=== PATIENT | female | born 1980 | race Caucasian/White ===

== ENCOUNTER 2019-01-14 14:07 | Emergency (ER) | payer OTHER ==
[~2019-01-14] VITALS: Ht 162.6 cm; Wt 72.8 kg
[2019-01-14 14:16] VITALS: BP 134/83
--- NOTE | 2019-01-14 14:21 | NUR ---
PT AMBULATED TO LOBBY AT THIS TIME W/ VSS.
--- NOTE | 2019-01-14 15:21 | NUR ---
PT AMBULATED TO BED 12
--- NOTE | 2019-01-14 15:30 | NUR ---
PT IS A 38 Y/O FEMALE WHO PRESENTS TO THE ED C/O SORE THROAT X3 DAYS WITH FEVER. PT STATES THAT SYMPTOMS HAVE BEEN GOING ON X1 DAY. PT HAD FEVER AND TOOK MOTRIN TODAY AT 0700. PT REPORTS 8/10 ACHING SORE THROAT PAIN THAT DOES NOT RADIATE AND BODY ACHES. PT DENIES CP, SOB, N/V/D. PT AWAKE AND ALERT, RR EVEN/UNLABORED. PT REPOSITIONED FOR COMFORT, BED IN LOWEST POSITION. ER MD DR. DAMON NOTIFIED. WILL CONTINUE TO MONITOR. MEDHX:DENIES RX:IBUPROFEN
[2019-01-14] MEDS ORDERED: KETOROLAC 15 MG/ML VIAL IM ONE (15:50)
[2019-01-14] MEDS ORDERED: DEXAMETHASONE 10 MG/ML VIAL IM ONE (15:50)
--- NOTE | 2019-01-14 16:30 | NUR ---
PATIENT RESTING AT THIS TIME. NO SIGNS OF DISTRESS.
[2019-01-14] MEDS ORDERED: PENICILLIN G BENZATHINE L-A 1.2 MU/2 ML SYR IM ONE (16:35)
[2019-01-14 17:00] VITALS: BP 137/81
--- NOTE | 2019-01-14 17:00 | NUR ---
Patient discharged with v/s stable. Written and verbal after care instructions given and explained. Patient verbalized understanding. Ambulatory with steady gait. All questions addressed prior to discharge. Advised to follow up with PMD.
== END 2019-01-14 17:00 | disposition home or self-care (01) ==
LOC: MED 14:07
DX: J02.8 Acute pharyngitis due to other specified organisms (principal)
CPT/HCPCS: 81002; 81025; 87081; 96372; 99283; J0561; J1100; J1885

== ENCOUNTER 2019-11-25 11:19 | Emergency (ER) | payer SELFPAY ==
[~2019-11-25] VITALS: Ht 162.6 cm; Wt 74.8 kg
--- NOTE | 2019-11-25 11:24 | NUR ---
Patient ambulated to bed 7. RN evaluating patient at bedside.
[2019-11-25 11:27] VITALS: BP 122/83
--- NOTE | 2019-11-25 11:27 | NUR ---
39 Y/O F C/C FATIGUE X 1 WEEK. PT FURTHER COMPLAINTS OF HEADACHE/NAUSEA X 1 DAY. PT DENIES BURNING ON URINATION WITH NORMAL BM. NO ABDOMINAL PAIN/DISCOMFORT. ABLE TO TOLERATE ORAL INTAKE. HAS TAKEN TYLENOL FOR H/A WITH NO RELIEF. NKA. NO HX. NO RX. NO V/D. SIDE RAIL X1.
[2019-11-25] MEDS ORDERED: NACL 0.9% 1,000 ML IV ONE (12:45)
[2019-11-25 13:24] LABS: BASOPHILS # (AUTO) 0.1 K/uL (0.00-0.22); BASOPHILS % (AUTO) 0.8 % (0.0-2.0); EOSINOPHILS # (AUTO) 0.3 K/uL (0-0.4); EOSINOPHILS % (AUTO) 2.5 % (0.0-4.0); HEMATOCRIT 38.1 % (36-48); HEMOGLOBIN 12.5 g/dL (12.0-16.0); LYMPHOCYTES # (AUTO) 2.5 K/uL (2.5-16.5); LYMPHOCYTES % (AUTO) 23.1 % (20.5-51.1); MEAN CORPUSCULAR HEMOGLOBIN 28 pg (27-31); MEAN CORPUSCULAR HGB CONC 33 g/dL (33-37); MEAN CORPUSCULAR VOLUME 86.2 fL (80-94); MONOCYTES # (AUTO) 0.5 K/uL (0.8-1.0); MONOCYTES % (AUTO) 4.9 % (1.7-9.3); NEUTROPHILS # (AUTO) 7.5 K/uL (1.8-7.7); NEUTROPHILS % (AUTO) 68.7 % (42.2-75.2); PLATELET COUNT (AUTO) 353 K/uL (140-450); RED BLOOD CELL COUNT(AUTO) 4.42 MIL/uL (4.20-5.40); RED CELL DISTRIBUTION WIDTH 15.2 % (11.6-13.7); WHITE BLOOD COUNT (AUTO) 10.9 K/uL (4.8-10.8)
[2019-11-25 14:01] LABS: ALBUMIN 3.5 g/dL (3.4-5.0); CARBON DIOXIDE 27.4 mmol/L (21-32); CREATININE 0.8 mg/dL (0.6-1.3); THYROID STIMULATING HORMONE 1.21 uIU/mL (0.34-3.74); TOTAL BILIRUBIN 0.3 mg/dL (0.0-1.0)
--- NOTE | 2019-11-25 14:03 | NUR ---
PT RESTING IN BED, SIDE RAIL X1
[2019-11-25 14:12] LABS: ANION GAP 12.5 (8-16); POTASSIUM 3.9 mmol/L (3.5-5.1)
[2019-11-25 14:26] LABS: APPEARANCE,URINE CLEAR (CLEAR); BILIRUBIN,URINE NEGATIVE (NEGATIVE); BLOOD, URINE NEGATIVE (NEGATIVE); COLOR,URINE DARK YELLOW (YELLOW); LEUKOCYTE ESTERASE ,URINE NEGATIVE (NEGATIVE); NITRITE, URINE NEGATIVE (NEGATIVE); PH,URINE 5.5 (5.0-9.0); UGLUCOSE NEGATIVE (NEGATIVE)
--- NOTE | 2019-11-25 15:02 | NUR ---
Dr. Addison is evaluating the patient at bedside.
[2019-11-25 15:13] VITALS: BP 124/76
--- NOTE | 2019-11-25 15:13 | NUR ---
Patient discharged with v/s stable. Written and verbal after care instructions given and explained. Patient alert, oriented and verbalized understanding of instructions. Ambulatory with steady gait. All questions addressed prior to discharge. ID band removed. Patient advised to follow up with PMD. Rx of FIORICET AND NORCO given. Patient educated on indication of medication including possible reaction and side effects. Opportunity to ask questions provided and answered.
== END 2019-11-25 15:13 | disposition home or self-care (01) ==
LOC: MED 11:19
DX: R53.83 Other fatigue (principal); R51 Headache
CPT/HCPCS: 36415; 80053; 81003; 81025; 84443; 85025; 99283; J7030; 96361

== ENCOUNTER 2022-03-01 12:01 | Emergency (ER) | payer OTHER ==
[~2022-03-01] VITALS: Ht 162.6 cm; Wt 69.4 kg
[2022-03-01 12:30] VITALS: BP 130/82
--- NOTE | 2022-03-01 12:39 | NUR ---
c/o Left arm pain that rad to shoulder with headache x today. Pt states she smells smoke but there is no smoke around her. pain currently 01/06. Hasnt taken medication for pain. pmh: denies nkda
--- NOTE | 2022-03-01 12:39 | NUR ---
PT WALKED TO BED 7
[2022-03-01] MEDS ORDERED: LORazepam 0.5 MG TAB PO ONE (13:00)
[2022-03-01] MEDS ORDERED: IBUPROFEN 600 MG TAB PO ONE (13:00)
[2022-03-01 13:35] LABS: BASOPHILS # (AUTO) 0.1 K/uL (0.00-0.22); EOSINOPHILS # (AUTO) 0.1 K/uL (0-0.4); EOSINOPHILS % (AUTO) 1.5 % (0.0-4.0); HEMOGLOBIN 12.8 g/dL (12.0-16.0); LYMPHOCYTES # (AUTO) 1.9 K/uL (2.5-16.5); LYMPHOCYTES % (AUTO) 24.8 % (20.5-51.1); MEAN CORPUSCULAR HEMOGLOBIN 28 pg (27-31); MEAN CORPUSCULAR HGB CONC 33 g/dL (33-37); MEAN CORPUSCULAR VOLUME 84.8 fL (80-94); MONOCYTES # (AUTO) 0.5 K/uL (0.8-1.0); MONOCYTES % (AUTO) 6.2 % (1.7-9.3); NEUTROPHILS % (AUTO) 66.5 % (42.2-75.2); PLATELET COUNT (AUTO) 376 K/uL (140-450); RED BLOOD CELL COUNT(AUTO) 4.59 MIL/uL (4.20-5.40); RED CELL DISTRIBUTION WIDTH 14.4 % (11.6-13.7); WHITE BLOOD COUNT (AUTO) 7.6 K/uL (4.8-10.8)
[2022-03-01 14:34] LABS: ASPARTATE AMINOTRANSFERASE 19 U/L (15-37); CARBON DIOXIDE 26.7 mmol/L (21-32); CHLORIDE 104 mmol/L (98-107); CREATININE 0.7 mg/dL (0.6-1.3); GFR ARICAN-AMERICAN 119 mL/min (>90); GLUCOSE 85 mg/dL (74-106); POTASSIUM 3.7 mmol/L (3.5-5.1); SODIUM SERUM 141 mmol/L (136-145); TOTAL BILIRUBIN 0.3 mg/dL (0.0-1.0)
[2022-03-01 14:55] LABS: UREA NITROGEN, BLOOD 11 mg/dL (7-18)
[2022-03-01 14:56] LABS: ALBUMIN 3.5 g/dL (3.4-5.0)
[2022-03-01] MEDS ORDERED: IBUP-2213 PO (15:34)
== END 2022-03-01 16:08 | disposition home or self-care (01) ==
LOC: MED 12:01
DX: M79.10 Myalgia, unspecified site (principal); R06.02 Shortness of breath; R03.0 Elevated blood-pressure reading, without diagnosis of hypertension; Z79.899 Other long term (current) drug therapy
CPT/HCPCS: 36415; 71045; 80053; 84484; 85025; 93005; 99285